=== PATIENT | male | born 2000 | race American Indian/Alaskan Native ===

== ENCOUNTER 2020-01-17 13:08 | Emergency (ER) | payer SELFPAY ==
[2020-01-17 13:31] VITALS: BP 104/60
--- NOTE | 2020-01-17 13:35 | Event Note ---
ED Screening Note ED Screening Note: testicular pain This initial assessment/diagnostic orders/clinical plan/treatment(s) is/are subject to change based on patients health status, clinical progression and re- assessment by fellow clinical providers in the ED. Further treatment and workup at subsequent clinical providers discretion. Patient/guardian urged not to elope from the ED as their condition may be serious if not clinically assessed and managed. Initial orders include: ro torsion us and ua
--- NOTE | 2020-01-17 14:58 | Ultrasound Report ---
ULTRASOUND SCROTUM INDICATION: left testicle pain. COMPARISON None available. FINDINGS -- RIGHT TESTIS: Size: 4.3 x 1.8 x 2.7 cm. Echotexture: Normal. Color Doppler Flow: Normal. Lesions: None. EPIDIDYMIS: Size: Normal. Echotexture: Normal. Color Doppler Flow: Normal. Lesions: None. Hydrocele: None. Varicocele: None. Additional Findings: None. FINDINGS -- LEFT TESTIS: Size: 3.8 x 1.6 x 2.8 cm. Echotexture: Normal. Color Doppler Flow: Normal. Lesions: None. EPIDIDYMIS: Size: Normal. Echotexture: Normal. Color Doppler Flow: Increased color Doppler flow L esions: None. Hydrocele: None. Varicocele: None. Additional Findings: None. IMPRESSION: 1. Left-sided epididymitis. No torsion. Signer Name: Kaz Weathers MD Signed: 01/17/2020 2:54 PM Workstation Name: [id number]
[2020-01-17 16:18] LABS: Bilirubin,Urine NEG (Negative); Blood,Urine NEG (Negative); Color,Urine Straw (Yellow); Protein,Urine <15 mg/dL mg/dL (Negative); Urobilinogen,Urine < 2.0 mg/dL (<2.0)
--- NOTE | 2020-01-17 16:43 | Emergency Department Report ---
ED Male HPI - General Chief complaint: Urogenital-Male Stated complaint: GROIN PAIN Time Seen by Provider: 01/17/20 13:34 Source: patient Mode of arrival: Ambulatory Limitations: No Limitations - History of Present Illness Initial comments: 19-year-old male presents to the ER today complaining of left testicular pain and swelling. Patient states started a couple days ago. Patient states that it feels like there is a "ball in my testicle". He denies any redness or bruising. He denies any injury. He denies any dysuria or penile discharge. He denies similar symptoms in the past. He denies any known family history of testicular torsion. Patient admits that he is sexually active and he has had a few sexual partners in the past few weeks. MD Complaint: testicle pain, testicle swelling -: days(s) (2) Location: left testicle - Related Data Previous Rx's Medication Instructions Recorded Last Taken Type Doxycycline Hyclate [Doxycycline 100 mg PO Q12HR #14 tab 01/17/20 Unknown Rx Hyclate TAB] Ibuprofen [Motrin] 600 mg PO Q8H PRN #30 tablet 01/17/20 Unknown Rx Allergies Allergy/AdvReac Type Severity Reaction Status Date / Time No Known Allergies Allergy Unverified 01/17/20 13:25 ED Review of Systems ROS: Stated complaint: GROIN PAIN Other details as noted in HPI Comment: All other systems reviewed and negative Gastrointestinal: denies: abdominal pain Genitourinary: testicular pain. denies: urgency, dysuria, frequency, hematuria, discharge, testicular mass ED Past Medical Hx - Past Medical History Previous Medical History?: No - Surgical History Past Surgical History?: No - Social History Smoking Status: Current Every Day Smoker Substance Use Type: Marijuana - Medications Home Medications: Home Medications Medication Instructions Recorded Confirmed Last Taken Type Doxycycline Hyclate [Doxycycline 100 mg PO Q12HR #14 tab 01/17/20 Unknown Rx Hyclate TAB] Ibuprofen [Motrin] 600 mg PO Q8H PRN #30 tablet 01/17/20 Unknown Rx ED Physical Exam - General Limitations: No Limitations General appearance: alert, in no apparent distress - Respiratory Respiratory exam: Present: respiratory distress - Cardiovascular Cardiovascular Exam: Present: regular rate - GI/Abdominal GI/Abdominal exam: Present: soft. Absent: distended, tenderness - exam: Present: normal inspection, testicular tenderness (Left), scrotal swelling (Left mild), circumcision. Absent: urethral discharge External exam: Absent: swelling, lesions, lacerations, ecchymosis, bleeding - Expanded Exam Expanded exam: Testicular Tenderness: Left, Testicular Swelling: Left (Mild), Epididymal Tenderness: Left - Neurological Exam Neurological exam: Present: alert, oriented X3, CN II-XII intact, normal gait - Skin Skin exam: Present: rash ED Course Vital Signs 01/17/20 01/17/20 13:25 16:02 Temperature 97.7 F Pulse Rate 66 Respiratory 16 16 Rate Blood Pressure 104/60 O2 Sat by Pulse 99 Oximetry ED Medical Decision Making - Radiology Data Radiology results: report reviewed [facility] [address] [place] [address] Ultrasound Report Signed Patient: ROCKY QUIROGA MR #: [id number] : 2000 Acct:[id number] Age/Sex: 19 / M ADM Date: 01/17/20 Loc: ED Attending Dr: Ordering Physician: GERALDINE DIAZ Date of Service: 01/17/20 Procedure(s): US testicular doppler comp Accession Number(s): [id number] cc: GERALDINE DIAZ ULTRASOUND SCROTUM INDICATION: left testicle pain. COMPARISON None available. FINDINGS -- RIGHT TESTIS: Size: 4.3 x 1.8 x 2.7 cm. Echotexture: Normal. Color Doppler Flow: Normal. Lesions: None. EPIDIDYMIS: Size: Normal. Echotexture: Normal. Color Doppler Flow: Normal. Lesions: None. Hydrocele: None. Varicocele: None. Additional Findings: None. FINDINGS -- LEFT TESTIS: Size: 3.8 x 1.6 x 2.8 cm. Echotexture: Normal. Color Doppler Flow: Normal. Lesions: None. EPIDIDYMIS: Size: Normal. Echotexture: Normal. Color Doppler Flow: Increased color Doppler flow Lesions: None. Hydrocele: None. Varicocele: None. Additional Findings: None. IMPRESSION: 1. Left-sided epididymitis. No torsion. Signer Name: Kaz Weathers MD Signed: 01/17/2020 2:54 PM Workstation Name: [id number] Transcribed By: TL Dictated By: Kaz Weathers MD Electronically Authenticated By: Kaz Weathers MD Signed Date/Time: 01/17/201453 DD/ 52 TD/TT: Critical care attestation.: If time is entered above; I have spent that time in minutes in the direct care of this critically ill patient, excluding procedure time. ED Disposition Clinical Impression: Epididymitis Disposition: - TO HOME OR SELFCARE Is pt being admited?: No Does the pt Need Aspirin: No Condition: Stable Instructions: Epididymitis (ED) Additional Instructions: Take and complete all antibiotics. Take motrin as prescribed for pain. Follow up with PCP for referal to Urologist if symptoms continues after medications. Prescriptions: Doxycycline Hyclate [Doxycycline Hyclate TAB] 100 mg PO Q12HR #14 tab Ibuprofen [Motrin] 600 mg PO Q8H PRN #30 tablet PRN Reason: Pain Referrals: NED ATKINSON MD [Staff Physician] - 3-5 Days Forms: STI Treatment and Prevention Time of Disposition: 17:24
[2020-01-17] MEDS ORDERED: LIDOCAINE-MPF (1%) 10 MG/1 ML VIAL 5 ML INFILTRATI ONE (17:19)
== END 2020-01-17 17:56 | disposition home or self-care (01) ==
LOC: ED 13:08
DX: N45.1 Epididymitis (principal); F12.90 Cannabis use, unspecified, uncomplicated; F17.200 Nicotine dependence, unspecified, uncomplicated; Z79.899 Other long term (current) drug therapy
CPT/HCPCS: 81001; 87086; 93975; 96372; 99284; J0696